=== PATIENT | female | born 1955 | race Caucasian/White ===

== ENCOUNTER 2024-10-15 09:08 | Day surgery (SDC) | payer BC, MEDICARE ==
[2024-10-13 13:30] VITALS: BP 127/87
[~2024-10-15] VITALS: Ht 165.1 cm; Wt 62.7 kg
[~2024-10-15 09:08] MED LIST: AMBIEN10 MG PO; BUDESONIDE8.43 ML NAS; CEFAZOLIN SODIUM 2 GM/20 ML SYR IV SCH; IBLOOD GLUCOSE TEST STRIP 1 EA TEST VI PRN; LACTATED RINGER'S 1,000 ML IV SCH; LIDOCAINE HCL 1% 5 ML SDV INJ ONE; MIDAZOLAM HCL 5 MG/5 ML VIAL IV PRN; OMEPRAZOLE20 M1 PO; RHINASE LUBRICA30 ML NAS; SCOPOLAMINE 1 MG/3 DAYS PATCH 1 EACH TDSY TD SCH; SLEEP MELATONIN1 MG PO; fentaNYL citrate 100 MCG/2 ML VIAL IV PRN; ondansetron HCL 4 MG/2 ML VIAL IV SCH
[2024-10-15 09:25] VITALS: BP 135/70
[2024-10-15] MEDS ORDERED: propofoL 200 MG/20 ML VIAL ONE (10:03)
[2024-10-15] MEDS ORDERED: LIDOCAINE HCL 2% 5 ML SDV ONE (10:03)
--- NOTE | 2024-10-15 10:56 | NUR ---
10/15/24 1056 Shyla Sherman 1040- PT ARRIVES TO THE PACU WITH A NATURAL AIRWAY AND 6L OF O2 VIA MASK. BREATHING IS EVEN AND UNLABORED. LR INFUSING INR FOREARM. ABDOMEN IS SOFT AND NONDISTENDED. PT IS IN LEFT LATERAL POSITION. PT IS NONREACTIVE TO TACTILE AND VERBAL STIMULI. ALL MONITORS PUT IN PLACE. 1043- PT OPENS EYES TO VERBAL STIMULI. PT EDUCATED ON SCOPALIMINE PATCH AND ENCOURAGED TO PASS GAS. PT ABLE TO FOLLOW COMMANDS AT THIS TIME. 1046- O2 TURNED OFF. VSS. PT MAINTAINS SATURATION IN THE HIGH 90S.
[2024-10-15 11:16] VITALS: BP 131/66
--- NOTE | 2024-10-15 16:37 | OR ---
[facility] [address], [place] [address] Signed DATE OF OPERATION: 10/15/2024 SURGEON: Liliana Rodríguez MD PREOPERATIVE DIAGNOSES: 1. Guaiac-positive stool x2. 2. Diverticulosis. POSTOPERATIVE DIAGNOSES: 1. Moderately long redundant colon. 2. Minimal diverticulosis. PROCEDURE: Colonoscopy without biopsy. ESTIMATED BLOOD LOSS: None. INDICATIONS: Vita is a 69-year-old female, who was asked to see me for a followup colonoscopy. She says she had a colonoscopy in 2007 at the age of 53 [address] Stoddard. She received 7 mg of Versed and 100 mcg of fentanyl. She had minimal diverticulosis. However, she had terrible nausea and vomiting three days afterwards. Consequently, she has declined colonoscopy since that time. 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 She said that was excellent. More recently she had her fecal occult blood test come back positive x2. As a result, she was asked to see me for a followup colonoscopy. She does not know family history of colon cancer or polyps. She does not have any lower GI complaints. In the office, I gave her a pamphlet on colonoscopy. We reviewed the nature of the test. There is risk including, but not limited to gas bloating, crampy abdominal pain, bleeding, perforation requiring surgery, and missed diagnosis. We also reviewed the written instructions for the bowel prep line by line. We also discussed the need for monitored anesthesia care given her current situation along with her daily alcohol use. We also provided her with a scopolamine patch along with some Zofran before we started. She had expressed understanding and wished to proceed. PROCEDURE IN DETAIL: Vita was taken into our endoscopy suite and placed in the left lateral decubitus position. She was given monitored anesthesia care, propofol infusion per our nurse meat dresser. A digital rectal exam was performed. This was unremarkable. There were Electronically Signed By: LILIANA RODRÍGUEZ MD 10/15/24 1637 PATIENT NAME: VITA QUIROZ OPERATIVE REPORT DATE OF : 57 REPORT #: [id number] PHYSICIAN: LILIANA RODRÍGUEZ MD PCP: OPAL CHIU REPORT IS CONFIDENTIAL AND NOT TO BE RELEASED WITHOUT AUTHORIZATION [facility] [address], [place] [address] Signed no external hemorrhoids. She had good sphincter tone. There were no masses noted. The adult colonoscope was introduced and advanced under direct visualization of camera. Vita is slight of build and small and it took a little extra propofol and some abdominal compression to slowly but surely get the scope to her moderately long redundant colon into the cecum itself. Her prep was quite excellent. We could easily see the appendiceal orifice and ileocecal valve. The scope was then slowly withdrawn. She does have some diverticula in her sigmoid colon. They were moderate in size, few in number and scattered about. There were no polyps. In the rectum, the scope had been retroflexed and we did not see any additional pathology above the anal canal. After this, the gas was suctioned out and the colonoscope removed. Vita tolerated the procedure quite well. RECOMMENDATIONS: Vita is welcome to follow up in 10 years for repeat screening colonoscopy so long as her health holds up. Liliana Rodríguez MD ALB/MODL /[id number] cc: MD Opal Araya PA Copies: LILIANA RODRÍGUEZ MD, LINDA PA ~ Electronically Signed By: LILIANA RODRÍGUEZ MD 10/15/24 1637 PATIENT NAME: VITA QUIROZ OPERATIVE REPORT DATE OF : 57 REPORT #: [id number] PHYSICIAN: LILIANA RODRÍGUEZ MD PCP: OPAL CHIU REPORT IS CONFIDENTIAL AND NOT TO BE RELEASED WITHOUT AUTHORIZATION
== END 2024-10-15 11:25 | disposition home or self-care (01) ==
LOC: DS 09:08
PROVIDERS: ATTEND Colon & Rectal Surgery
PROC: 0DJD8ZZ Inspection of Lower Intestinal Tract, Via Natural or Artificial Opening Endoscopic (ICD-10-PCS; principal; 2024-10-15 10:30)
DX: Z12.11 Encounter for screening for malignant neoplasm of colon (principal); K63.89 Other specified diseases of intestine; K57.30 Diverticulosis of large intestine without perforation or abscess without bleeding; M19.90 Unspecified osteoarthritis, unspecified site; Z79.899 Other long term (current) drug therapy
CPT/HCPCS: 00811; J0690; J2003; J2405; J2704; J7121